=== PATIENT | female | born 1950 | race Caucasian/White ===

== ENCOUNTER → 2016-10-08 | Outpatient (CLI) | payer OTHER ==
[~2016-10-08] MED LIST: CALC3OIN TD; CYNI1000 INJ; [UNRECOGNIZED DRUG - CODE] TD
--- NOTE | 2016-10-08 12:19 | DIAGNOSTIC IMAGING REPORT ---
RIGHT KNEE 3 VIEWS CLINICAL HISTORY: Right knee pain. FINDINGS: AP, lateral, and sunrise views of the right knee are obtained. No prior studies are available for comparison at the time of dictation. The skeletal structures are well mineralized for age. No fracture is seen. There is mild tricompartmental degenerative joint space narrowing, greatest at the patellofemoral articulation. Large marginal osteophytes are seen laterally. There are patellar enthesophytes. No joint effusion is seen. The overlying soft tissues are within normal limits. IMPRESSION: Mild degenerative change as above. No acute bony abnormality is seen. Electronically signed by: Souleymane Maolne M.D. 10/08/2016 12:18 PM Dictated Date/Time: 10/08/2016 12:17 PM
== END | disposition home or self-care (01) ==
LOC: C.RAD1850 11:36
PROVIDERS: ATTEND Internal Medicine
DX: M25.561 Pain in right knee (principal)

== ENCOUNTER → 2016-10-15 | Outpatient (CLI) | payer OTHER ==
--- NOTE | 2016-10-15 15:19 | MAMMOGRAPHY REPORT ---
BILATERAL DIGITAL SCREENING MAMMOGRAM WITH CAD: 10/15/2016 CLINICAL HISTORY: Routine screening. Patient has no complaints. TECHNIQUE: Bilateral CC and MLO views were obtained. Current study was also evaluated with a Compute r Aided Detection (CAD) system. COMPARISON: Comparison is made to exams dated: 10/10/2015 mammogram, 10/26/2014 aspiration, 10/14/2014 u ltrasound, 10/14/2014 mammogram, 10/06/2014 mammogram, and 09/30/2013 mammogram - [facility] enter. BREAST COMPOSITION: The tissue of both breasts is extremely dense, which lowers the sensitivity of m ammography. FINDINGS: The parenchymal pattern is unchanged. No developing mass, architectural distortion or clus ter of suspicious microcalcifications is seen in either breast. IMPRESSION: ACR BI-RADS CATEGORY 2: BENIGN There is no mammographic evidence of malignancy. A 1 year screening mammogram is recommended. The pa tient will receive written notification of the results. Approximately 10% of breast cancers are not detected with mammography. A negative mammographic report should not delay biopsy if a clinically suggestive mass is present. Griselda Sorensen M.D. ay/:10/15/2016 13:55:10 Film Casting Operator: Danay GARZA(R)(M), [facility] letter sent: Normal 1/2 BI-RADS Code: ACR BI-RADS Category 2: Benign
== END | disposition home or self-care (01) ==
LOC: C.MAMM 09:38
PROVIDERS: ATTEND Obstetrics & Gynecology
DX: Z12.31 Encounter for screening mammogram for malignant neoplasm of breast (principal)

== ENCOUNTER → 2017-04-23 | Outpatient (CLI) | payer OTHER ==
--- NOTE | 2017-04-23 11:19 | DIAGNOSTIC IMAGING REPORT ---
THYROID ULTRASOUND HISTORY: E04.2 Multiple thyroid nodules Compare to previous studies.[id number] COMPARISON: Thyroid ultrasound 02/07/2015. FINDINGS: Right lobe: 4.4 x 1.6 x 1.5 cm. Multiple nodules are again noted. Dominant nodule within the upper pole measures 1.1 x 0.8 x 0.8 cm. These nodules are both solid and cystic are not significantly changed Left lobe: 4.8 x 1.7 x 1.6 cm. Multiple nodules are again noted. Dominant nodule within the lower pole measures 1.6 x 1.2 x 1.1 cm and is not significantly changed. This is both solid and cystic and was present biopsy. Isthmus: 4 mm in thickness. No significant change in the 1.7 x 1.3 x 1.1 cm nodule in the left side of the isthmus which is predominately solid. IMPRESSION: 1. No significant change in multinodular thyroid gland. The dominant nodule within the lower pole of the left thyroid lobe has been previously biopsied.. 2. The 1.7 x 1.3 x 1.1 cm nodule within the left side of the isthmus is predominantly solid and therefore meets sonographic criteria for biopsy. Ultrasound-guided fine needle aspiration of this nodule is recommended. Electronically signed by: Deejay Jeffery M.D. 04/23/2017 11:18 AM Dictated Date/Time: 04/23/2017 11:10 AM
== END | disposition home or self-care (01) ==
LOC: C.ULTR 10:10
PROVIDERS: ATTEND Internal Medicine Endocrinology, Diabetes & Metabolism
DX: E04.2 Nontoxic multinodular goiter (principal)

== ENCOUNTER → 2017-11-15 | Outpatient (CLI) | payer OTHER | END | disposition home or self-care (01) | LOC: C.LABSPEC 17:00 | PROVIDERS: ATTEND Podiatrist Foot & Ankle Surgery | DX: M70.872 Other soft tissue disorders related to use, overuse and pressure, left ankle and foot (principal) ==

== ENCOUNTER 2023-09-16 08:28 | Observation (INO) ==
--- NOTE | 2023-08-05 11:25 | PAT Medication Instructions ---
Medication Instructions Date of Service August 05, 2023 Home Medications Medication Instructions Recorded lidocaine 4 % topical patch 1 patch topical Q24H PRN pain #1 ea 01/12/19 (Aspercreme (lidocaine)) diclofenac sodium 1 % topical gel 2 g topical BID PRN Pain #100 grams 07/19/20 rosuvastatin 5 mg tablet 5 mg PO WK #12 tabs 06/11/23 sertraline 100 mg tablet 100 mg PO HS #90 tabs 06/30/23 triamcinolone acetonide 0.1 % topical ointment 1 appln topical BID PRN Skin Irritation lidocaine 4 % topical patch (Aspercreme (lidocaine)) 1 patch topical Q24H PRN pain diclofenac sodium 1 % topical gel 2 g topical BID PRN Pain cyanocobalamin (vitamin B-12) 1,000 mcg sublingual tablet 1,000 mcg sublingual 2XWK cholecalciferol (vitamin D3) 50 mcg (2,000 unit) capsule 1,000 unit PO QPM estradiol 0.01% (0.1 mg/gram) vaginal cream 1 appful vaginal MONTHLY cranberry 400 mg capsule 400 mg PO DAILY rosuvastatin 5 mg tablet 5 mg PO WK sertraline 100 mg tablet 100 mg PO HS azelastine 205.5 mcg (0.15 %) nasal spray 2 spray intranasal DAILY fluticasone propionate 50 mcg/actuation nasal spray,suspension 1 spray intranasal QPM esomeprazole magnesium 20 mg capsule,delayed release 20 mg PO QAM Continue as directed lidocaine 4 % topical patch (Aspercreme (lidocaine)) 1 patch topical Q24H PRN pain (avoid placement near surgical site prior to surgery) rosuvastatin 5 mg tablet 5 mg PO WK STOP taking 24 hours before surgery triamcinolone acetonide 0.1 % topical ointment 1 appln topical BID PRN Skin Irritation diclofenac sodium 1 % topical gel 2 g topical BID PRN Pain estradiol 0.01% (0.1 mg/gram) vaginal cream 1 appful vaginal MONTHLY DO NOT take the morning of surgery cyanocobalamin (vitamin B-12) 1,000 mcg sublingual tablet 1,000 mcg sublingual 2XWK Take morning of surgery With a small sip of water, OTHERWISE NOTHING TO EAT OR DRINK AFTER MIDNIGHT: azelastine 205.5 mcg (0.15 %) nasal spray 2 spray intranasal DAILY esomeprazole magnesium 20 mg capsule,delayed release 20 mg PO QAM Take evening before surgery cholecalciferol (vitamin D3) 50 mcg (2,000 unit) capsule 1,000 unit PO QPM sertraline 100 mg tablet 100 mg PO HS fluticasone propionate 50 mcg/actuation nasal spray,suspension 1 spray intranasal QPM Other Notes If you have any questions please call us at [phone] or [phone] or [phone] or [phone]
--- NOTE | 2023-08-19 11:18 | Anesthesiology Consultation ---
Date of Service August 19, 2023 Assessment & Plan (1) Encounter for pre-operative examination: Chart Review Chart Review: Acceptable Risk for Surgery (pending sinus CT scan (if available/scheduled before surgery)) and Patient seen in Pre Admission Testing - Awaiting sinus CT scan (if available/scheduled before surgery) (being ordered by dental secretary) - Patient is not ideal OPJ candidate (patient requests 23 hour obs) (currently scheduled as 23 hour obs) Per PAT appt on 08/19/23, no recent illness/disease exposures, illness related symptoms, or recent illness/disease positive tests. Will leave to surgeon's discretion if preop Covid testing needed Patient seen by allergy 08/19/2023 = patient with history of allergic as well as nonallergic rhinitis. Has environmental allergies but also has symptoms of gustatory rhinitis. Found to have partial benefit with fluticasone and azelastine. Patient to continue both. Ipratropium discontinued due to headaches. Patient also has history of sinusitis and feels as though left side is always worse than rightconcerned about possibility of untreated chronic sinusitis and recommend that we perform sinus CT scan to further evaluate. Patient excellent candidate for allergy shotshowever this would only treat allergic component of symptoms and she will likely have some degree of nonallergic rhinitis/possible not improved. Will contact patient once CT scan results are in. She will be getting joint replacement at the beginning of September. Teaching & Discussion Pre-Anesthesia Teaching/Discussion Notes: Instructed NPO after midnight before surgery,except medications with 15 cc of water. Medication instructions provided according to the PAT guidelines. History Surgery Operation Date: 09/16/23 11:00 Proposed Procedures p Right Total Knee Arthroplasty - Jairo Dawn DO Height/Weight Height: 5 ft 3 in Weight: 67.5 kg Allergies Allergy/AdvReac Type Severity Reaction Status Date / Time Sulfa (Sulfonamide Allergy Mild HIVES TYPE Verified 08/19/23 09:38 Antibiotics) REACTION "ANTS RUNNING OVER SKIN" acetaminophen [From Percocet] AdvReac Severe Nausea Verified 08/19/23 11:21 ibuprofen AdvReac Severe severe Verified 08/19/23 09:38 heartburn and abdominal pain oxycodone [From Percocet] AdvReac Severe Nausea Verified 08/19/23 11:21 prednisone AdvReac Severe Tachycardia Verified 08/19/23 09:38 carbamazepine AdvReac Mild WAS Verified 08/19/23 09:38 INEFFECTIVE meperidine AdvReac Mild N/V Verified 08/19/23 09:38 Medications Home Medications Medication Instructions Recorded Confirmed Last Taken triamcinolone acetonide 0.1 % 1 appln topical BID PRN Skin 01/10/19 08/19/23 Unknown topical ointment Irritation #1 g lidocaine 4 % topical patch 1 patch topical Q24H PRN pain #1 ea 01/12/19 08/19/23 Unknown (Aspercreme (lidocaine)) diclofenac sodium 1 % topical gel 2 g topical BID PRN Pain #100 grams 07/19/20 08/19/23 Unknown cyanocobalamin (vitamin B-12) 1,000 mcg sublingual 2XWK 07/25/20 08/19/23 Unknown 1,000 mcg sublingual tablet cholecalciferol (vitamin D3) 50 1,000 unit PO QPM 09/06/22 08/19/23 Unknown mcg (2,000 unit) capsule estradiol 0.01% (0.1 mg/gram) 1 appful vaginal MONTHLY 09/06/22 08/19/23 Unknown vaginal cream cranberry 400 mg capsule 400 mg PO DAILY 09/13/22 08/19/23 Unknown rosuvastatin 5 mg tablet 5 mg PO WK #12 tabs 06/11/23 08/19/23 Unknown sertraline 100 mg tablet 100 mg PO HS #90 tabs 06/30/23 08/19/23 Unknown azelastine 205.5 mcg (0.15 %) 2 spray intranasal DAILY 07/11/23 08/19/23 Unknown nasal spray fluticasone propionate 50 1 spray intranasal QPM 07/11/23 08/19/23 Unknown mcg/actuation nasal spray,suspension esomeprazole magnesium 20 mg 20 mg PO QAM 08/02/23 08/19/23 Unknown capsule,delayed release Past Medical History Medical History (Updated 08/19/23 @ 15:35 by Kenna Rojas PA-C) Allergic rhinitis Chronic - many years- stable Anxiety Dry eye syndrome GERD (gastroesophageal reflux disease) fairly controlled - stable with Nexium - follows with GI Hiatal hernia History of COVID-19 (~2021) mild, resolved History of seizures Simple partial seizures [id number] (was on medications)- has since off medications since 2011 without noted issues Only follows with PCP Hx of recurrent urinary tract infection No current issues Hyperlipidemia controlling with medication Lumbar spinal stenosis Non-allergic rhinitis Post-nasal drip severe, seeing an dental secretary Prediabetes no meds, diet controlled Psoriasis mild- stable Exercise / Class Metabolic Activity II 4-5 Yardwork/Stairs/Walk up hill (one flight of stairs - no chest pain or SOB ) Past Family History Family History Family/Other Family history of diabetes mellitus Grandfather Family history of diabetes mellitus Grandmother (Maternal) Myocardial infarction Grandfather (Maternal) Myocardial infarction Uncle Myocardial infarction Denies family history of Colon cancer Ovarian cancer Prostate cancer Breast cancer Past Surgical History Surgical History H/O toe surgery left foot big toe fusion History of adenoidectomy History of bilateral tubal ligation History of colonoscopy History of esophagogastroduodenoscopy (EGD) History of tonsillectomy History of total abdominal hysterectomy and bilateral salpingo-oophorectomy Hx of bilateral cataract extraction Nausea and vomiting after administration of anesthetic agent no recent issues S/P epidural steroid injection Past Anesthesia History No Hx of Anesthesia Complications (with exception to PONV with GA ) and No Family Hx of Anesthesia Complications History of PONV History of PONV (with GA ) and Hx of Motion Sickness Social History Smoking Status: Never smoker Do You Dip or Chew Tobacco: No Hx Alcohol Use: Yes Alcohol type: wine alcohol intake frequency: a few times a week Hx Substance Use: No substance use type: does not use Review of Systems - Chronic cough x years- secondary to allergies/post nasal drip- stable Patient denies chest pain, shortness of breath, dyspnea on exertion, wheezing, palpitations. No hx of stroke, MD, apnea/snoring. No hx of blood clots or blood transfusions Physical Exam Vital Signs VITALS BP 125/80 P 63 TEMP 97.5 SP02 97% RESP 16 Constitutional no acute distress ENMT Mouth: no TMJ clicking Thyromental Distance: > or= 3.5 Finger Breadths (3.5) Mallampati Class: III Mouth / Teeth: 2 1. Chipped 2. Chipped 3. Chippped 4. Chipped Crowns to side teeth See picture Neck neck extension not limited Respiratory normal respiratory effort; no respiratory distress Auscultation: lungs clear to auscultation bilaterally; no wheezes Cardiovascular Rate/Rhythm: regular rate and regular rhythm Heart Sounds: no murmur Vessels: no carotid bruit Musculoskeletal Spine: no pain with cervical ROM Extremities: extremities normal to inspection Psychiatric Orientation: alert Lab Results Anesthesia Preop Results Results Anesthesia Widget: 2 WBC 5.80 K/ul (4.8-10.8) 08/19/23 Hgb 13.0 g/dl (12.0-16.0) 08/19/23 Hct 39.3 % (37.0-47.0) 08/19/23 Plt 238 K/uL (130-400) 08/19/23 Na 140 mmol/L (136-145) 08/19/23 K 4.9 mmol/L (3.5-5.1) 08/19/23 Cl 106 mmol/L (98-107) 08/19/23 CO2 28 mmol/L (21-32) 08/19/23 BUN 14 mg/dl (6-23) 08/19/23 Creat 0.71 mg/dl (0.6-1.2) 08/19/23 Glucose Level 102 mg/dl (70-99(Fasting)) H 08/19/23 PT 10.9 Seconds (9.0-12.0) 08/19/23 PTT 29 Seconds (21-31) 08/19/23 INR 1.0 (0.9-1.1) 08/19/23 HA1c 5.9 % (4.5-5.6) H 08/19/23 Blood Type A Positive 08/19/23 Antibody Screen NEGATIVE 08/19/23 Testing Electrocardiogram Date: 08/19/23 Findings: + SB @ (56bpm) Otherwise normal EKG per cardio Chest X-Ray Date: 08/19/23 FINDINGS: There is a 6 mm nodular density within the left lung apex. This may represent a calcified granuloma given the density. This could also be associated with the left first rib. Otherwise, lungs are clear. No pneumothorax. No pleural effusions. The heart is normal in size. IMPRESSION: 1. No acute process within the chest. 2. A 6 mm nodular density within the left lung apex. This may be associated with the overlapping first rib or represent a calcified granuloma. (Workload note sent to PCP for continuity of care) Echocardiogram Date: 04/21/18 EF: 60 to 65% LV Function: normal RWMA: + none Other Findings: no LVH or no diastolic dysfunction Valvular Disease: + no significant valvular disease Normal estimated RVSP Other Testing Event monitor 05/17/18 = sinus rhythm. Symptomatic PACs
--- NOTE | 2023-09-11 07:22 | History & Physical Report ---
Date of Service September 11, 2023 Assessment & Plan (1) Right knee DJD: We will proceed with a right total knee arthroplasty. Postoperatively she will be started on aspirin for DVT prophylaxis and kept overnight in the hospital for postoperative medical management. She plans to use energy physical therapy upon discharge. History of Present Illness Chief Complaint: Osteoarthritis of the right knee. Primary Care Provider: Kassie Corral MD Brittany is a pleasant 72-year-old female who has been dealing with chronic increasing right knee pain. She has been seeing another provider. She has had x-rays, which showed advanced arthritis of the right knee. After failing extensive conservative treatment, she has elected proceed with a right total knee arthroplasty. Allergies Allergy/AdvReac Type Severity Reaction Status Date / Time Sulfa (Sulfonamide Allergy Mild HIVES TYPE Verified 09/02/23 07:47 Antibiotics) REACTION "ANTS RUNNING OVER SKIN" acetaminophen [From Percocet] AdvReac Severe Nausea Verified 09/02/23 07:47 ibuprofen AdvReac Severe severe Verified 09/02/23 07:47 heartburn and abdominal pain oxycodone [From Percocet] AdvReac Severe Nausea Verified 09/02/23 07:47 prednisone AdvReac Severe Tachycardia Verified 09/02/23 07:47 carbamazepine AdvReac Mild WAS Verified 09/02/23 07:47 INEFFECTIVE meperidine AdvReac Mild N/V Verified 09/02/23 07:47 Home Medications Medication Instructions Recorded Confirmed Type triamcinolone acetonide 0.1 % 1 appln topical BID PRN Skin 01/10/19 09/02/23 History topical ointment Irritation #1 g lidocaine 4 % topical patch 1 patch topical Q24H PRN pain #1 ea 01/12/19 09/02/23 Rx (Aspercreme (lidocaine)) diclofenac sodium 1 % topical gel 2 g topical BID PRN Pain #100 grams 07/19/20 09/02/23 Rx cyanocobalamin (vitamin B-12) 1,000 mcg sublingual 2XWK 07/25/20 09/02/23 History 1,000 mcg sublingual tablet cholecalciferol (vitamin D3) 50 1,000 unit PO QPM 09/06/22 09/02/23 History mcg (2,000 unit) capsule estradiol 0.01% (0.1 mg/gram) 1 appful vaginal MONTHLY 09/06/22 09/02/23 History vaginal cream cranberry 400 mg capsule 400 mg PO DAILY 09/13/22 09/02/23 History rosuvastatin 5 mg tablet 5 mg PO WK #12 tabs 06/11/23 09/02/23 Rx sertraline 100 mg tablet 100 mg PO HS #90 tabs 06/30/23 09/02/23 Rx azelastine 205.5 mcg (0.15 %) 2 spray intranasal DAILY 07/11/23 09/02/23 History nasal spray fluticasone propionate 50 1 spray intranasal QPM 07/11/23 09/02/23 History mcg/actuation nasal spray,suspension esomeprazole magnesium 20 mg 20 mg PO QAM 08/02/23 09/02/23 History capsule,delayed release Past Med/Surg History Problem List Nodule of upper lobe of left lung Diarrhea Following with GI Change in bowel habits Following with GI- colonoscopy to be done summer 2023 History of diverticulosis Lower abdominal pain Following with GI Imaging abnormalities Following with PCP Right knee DJD Prediabetes PND (post-nasal drip) Cough Chronic/ongoing- PCP aware Right knee pain Nocturia Interstitial cystitis Following with urology per PCP records Recurrent UTI Vitamin D deficiency (Chronic) Anxiety (Chronic) Arthralgia of multiple sites (Acute) Following with PCP Bunion of left foot (Chronic) follows with PCP- possibly seeing PSH Disc degeneration, lumbar (Chronic) GERD without esophagitis (Acute) Hyperlipidemia (Acute) Insomnia (Chronic) Controlled with sertraline Multiple thyroid nodules (Acute) Sensorineural hearing loss (SNHL) of both ears (Acute) Undifferentiated spondyloarthropathy (Acute) Vitamin B12 deficiency (Acute) Medical History Non-allergic rhinitis Bladder irritability Lumbar spinal stenosis Psoriasis mild- stable Anxiety History of COVID-19 (~2021) mild, resolved Hx of recurrent urinary tract infection No current issues Allergic rhinitis Chronic - many years- stable Post-nasal drip severe, seeing an chandelier maker Prediabetes no meds, diet controlled History of seizures Simple partial seizures [id number] (was on medications)- has since off medications since 2011 without noted issues Only follows with PCP Hiatal hernia GERD (gastroesophageal reflux disease) fairly controlled - stable with Nexium - follows with GI Dry eye syndrome Hyperlipidemia controlling with medication Surgical History Hx of bilateral cataract extraction S/P epidural steroid injection H/O toe surgery left foot big toe fusion Nausea and vomiting after administration of anesthetic agent no recent issues History of bilateral tubal ligation History of esophagogastroduodenoscopy (EGD) History of colonoscopy History of total abdominal hysterectomy and bilateral salpingo-oophorectomy History of tonsillectomy History of adenoidectomy Family History Family/Other Family history of diabetes mellitus Grandfather Family history of diabetes mellitus Grandmother (Maternal) Myocardial infarction Grandfather (Maternal) Myocardial infarction Uncle Myocardial infarction Denies family history of Colon cancer Ovarian cancer Prostate cancer Breast cancer Social History Smoking Status: Never smoker Second Hand Exposure: No; Do You Dip or Chew Tobacco: No; Hx Alcohol Use: Yes Alcohol type: wine Hx Substance Use: No Preferred Language: Upper Sorbian Communication Ability: Effective Visual Impairment: No Limitations Hearing Ability: Normal Group Tester Required: No Beliefs That Will Affect Care: None marital status: Current Living Situation: Spouse current occupational status: retired Feels Safe at Home: Yes Childhood Exposure to Second-Hand Smoke: Yes Dental Care, Regularly: Yes Physical Activity Frequency: Daily Seatbelt Use: always Sunscreen Use: Yes Assistive Devices: Glasses Review of Systems All systems reviewed & are unremarkable except as noted in HPI & below. Physical Exam On physical examination of the right knee, she has a slight varus deformity. Tenderness palpation of the distal medial femoral condyle and over the medial joint line.. Constitutional WD/WN, vitals as above Eyes PERRL, conjunctivae normal, anicteric sclerae ENMT external ear and nose normal, oropharynx normal Neck trachea midline, no thyromegaly Respiratory normal respiratory effort Cardiovascular RRR, no murmur, no edema Gastrointestinal (Abdomen) normal bowel sounds, soft, nontender, no hepatosplenomegaly Psychiatric A+Ox3, euthymic affect Results & Data Results & Data Laboratory Results . Diagnostic Findings X-rays of the right knee show advanced osteoarthritis with joint space narrowing and osteophyte formation.. PG Care Time/CCT Total # of Minutes Spent Total Time Spent with Patient: Total time spent is greater than 50% in coordination of care (as documented) at patient's floor/unit and/or counseling patient: Coding Level of Care Code None Diagnoses Right knee DJD M17.11
[~2023-09-16 08:28] MED LIST changes: +BUPIVACAINE 0.25% PF 30 ML VIAL ONE; +BUPIVACAINE 0.5 % 5 MG/1 ML PF 10ML VIAL ONE; -CALC3OIN TD; -CYNI1000 INJ; -[UNRECOGNIZED DRUG - CODE] TD
[2023-09-16] MEDS ORDERED: fentaNYL citrate PF 100 MCG/2 ML VIAL IV PRN (08:48)
[2023-09-16] MEDS ORDERED: ATROPINE SULFATE 0.1 MG/ML 10ML SYR IV PRN (08:48)
[2023-09-16] MEDS ORDERED: ePHEDrine sulfate 50 MG/ML AMP IV PRN (08:48)
[2023-09-16] MEDS ORDERED: ONDANSETRON INJ 2 MG/ML 2 ML VIAL IV PRN ×2 (08:48→13:19)
--- NOTE | 2023-09-16 08:59 | History & Physical Bridge Note ---
Date of Service September 16, 2023 History & Physical Bridge Note I have examined the patient, reviewed the History & Physical and in the interval since the performance of the History & Physical I have noted the following changes of clinical significance: no changes noted
[2023-09-16] MEDS: LR 500ML BOLUS, THEN 15ML/HR IV SCH (09:20)
[2023-09-16] MEDS ORDERED: MIDAZOLAM HCL 1 MG/ML 2ML VIAL ONE ×2 (09:25)
[2023-09-16] MEDS ORDERED: fentaNYL citrate PF 100 MCG/2 ML VIAL ONE (09:25)
[2023-09-16] MEDS: GABAPENTIN 300 MG CAP PO SCH (09:29)
[2023-09-16] MEDS: ACETAMINOPHEN 500 MG TAB PO SCH ×2 (09:29→17:15)
[2023-09-16] MEDS: FAMOTIDINE 20 MG TAB PO SCH (09:29)
[2023-09-16] MEDS: LR 60ML/HR IV SCH (09:31)
[2023-09-16] MEDS: dexAMETHasone**PF** 10 MG/ML VIAL IV SCH (09:35)
[2023-09-16] MEDS: TRANEXAMIC ACID 1,000 MG **IV Pre-op IV SCH (09:39)
[2023-09-16] MEDS ORDERED: Nursing to Pharmacy Communication SCH (10:00)
[2023-09-16] MEDS ORDERED: DexMEDEtomidine HCL IV 100 MCG/ML VIAL IV ONE (10:01)
[2023-09-16] MEDS ORDERED: ONDANSETRON INJ 2 MG/ML 2 ML VIAL ONE (10:08)
[2023-09-16] MEDS ORDERED: PROPOFOL IV EMULSION 10 MG/ML 20 ML VIAL IV ONE (10:08)
[2023-09-16] MEDS ORDERED: ePHEDrine sulfate 50 MG/ML AMP ONE (10:34)
[2023-09-16] MEDS: ROPIV 0.5% 246mg, Ketorolac 30mg, EPINEPHrine 0.5mg in NSS INFIL SCH (10:41)
--- NOTE | 2023-09-16 10:51 | Operative Report ---
PG Post Operative Report Pre & Post Diagnosis Operation Date: 09/16/23 10:00 Pre-Op Diagnosis: Right Knee Degenerative Joint Disease Post-Op Diagnosis: Right Knee Degenerative Joint Disease I identified the patient and participated in the time-out.: Yes Procedure Operation Date: 09/16/23 10:00 Actual Procedures p Right Total Knee Arthroplasty(Right) - Jairo Dawn DO Surgeon Jairo Dawn DO Campus Monitor Jairo Busby PA-C Estimated Blood Loss 30 Findings Consistent with Post-Op Diagnosis Specimens Right femoral and tibial bone Description of Procedure Implants used: I used a Jessenia Persona total knee arthroplasty system with a size 7 narrow femur, D tibia, 28 oval patella, and a size 12 medial congruent polyethylene bearing. All components were cemented in place with Biomet cement. Brittany arrived for the above procedure. She was seen in the preoperative holding area and the operative extremity was identified and signed. She was given a preoperative antibiotic, TXA, a spinal anesthetic and an adductor nerve block. She was taken back to the operating room and laid on the table in supine position. She was given basic sedation. The operative knee was then prepped and draped in sterile fashion. A timeout was done, and the patient and the operative extremity was properly identified. A midline incision was made directly over the patella. Dissection was taken down to the extensor mechanism. A subvastus arthrotomy was used. The medial retinaculum was released and the fat pad was mostly excised. The knee was flexed and the ACL, PCL, and meniscus were removed. A drill was sent down the center of the femoral canal followed by an intramedullary linda. Off that linda a distal femoral cutting block was placed. 9 mm was resected off the distal femur at 5 of valgus. A posterior referencing AP sizing guide was then placed on the distal femur. The femur measured to be a size 7. 2 drill holes were placed in 3 of external rotation. A 4-in-1 cutting block was then impacted into place. Anterior, posterior, and chamfer cuts were then made. The proximal tibia was then exposed. An external tibial alignment guide was placed. A tibial cut guide was then anchored in place and the proximal tibia was then resected. The posterior aspect of the knee was then opened up and any additional meniscus fragments and osteophytes were removed. The tibia measured to be a size D. The tibial plate was then placed in the appropriate rotation and the tibia was drilled and punched. Trial components were then placed. I used a size 12 medial polyethylene insert. The knee was brought through a full range of motion and felt to be stable. The peg holes for the femoral component were then drilled. The patella was then everted and 9 mm was resected off the posterior aspect of the patella. The patella measured to be a size 28 oval. 3 peg holes were then drilled. A trial patella was placed. The knee was once again brought through a full range of motion and felt to be stable. Trial components were then removed. The surrounding soft tissues were injected with 100 cc of an orthopedic pain control cocktail. All components were then cemented into place with Biomet cement. The final polyethylene insert was then snapped into place. Once cement was dry the tourniquet was deflated. Hemostasis was obtained. A dilute betadyne lavage was then done for 3 minutes. The joint was then irrigated with normal saline solution. The subvastus arthrotomy was then closed with #1 Vicryl suture. The skin was closed with 2-0 Vicryl, 3-0V lock suture, and giana. A soft compressive dressing was placed. She was then transferred to a hospital bed and taken to the postanesthesia care unit in stable condition. She tolerated the procedure well. Jairo Busby PA-C, was present for the entire procedure. He was critical for patient positioning, prepping, draping, retraction exposure, wound closure and application of sterile dressing. I attest to the content of the Intraoperative Record and any orders documented therein. Any exceptions are noted below.
--- NOTE | 2023-09-16 12:41 | XRay Report ---
XR knee RT 1 or 2V routine CLINICAL HISTORY: Surgical Post Op TECHNIQUE: 2 views of the right knee were obtained. Comparison: Comparison is made to knee radiographs 04/10/2023 and MRI knee 05/24/2023 FINDINGS: Patient is status post total knee arthroplasty with expected postsurgical changes including soft tiss ue swelling and subcutaneous emphysema. No periarticular lucency or hardware fracture is seen. IMPRESSION: Expected postoperative appearance status post placement of total knee arthroplasty. ACT 112: Negative or not required by law. Electronically signed by: Roland Matamoros M.D. 09/16/2023 12:39 PM
[2023-09-16] MEDS ORDERED: NALOXONE HCL 0.4 MG/1 ML VIAL/CARP IV PRN (13:19)
[2023-09-16] MEDS ORDERED: HYDROmorphone INJ 0.5 MG/0.5 ML SYR IV PRN (13:19)
[2023-09-16] MEDS ORDERED: TRIAMCINOLONE ACET 0.1% OINT 15 GM TUBE TOP PRN (13:19)
[2023-09-16] MEDS ORDERED: bisacodyL 10 MG SUPP PR PRN (13:19)
[2023-09-16] MEDS ORDERED: MAGNESIUM HYDROXIDE SUSP 30 ML UDC PO PRN (13:19)
[2023-09-16] MEDS ORDERED: METOCLOPRAMIDE HCL INJ 5 MG/ML 2 ML VIAL IV PRN (13:19)
[2023-09-16] MEDS ORDERED: DICLOFENAC SOD 1% GEL 100 GM TUBE EXT PRN (13:19)
[2023-09-16] MEDS: ORTHO JOINT ANESTHETIC ONE (13:26)
[2023-09-16] MEDS: ceFAZolin 2000MG 2,000 MG/15 ML SYR IV SCH ×2 (13:27→17:54)
[2023-09-16] MEDS: TRANEXAMIC ACID 1,000 MG **IV Intra-op IV SCH (13:27)
--- NOTE | 2023-09-16 13:57 | Anesthesiology Progress Note ---
Date of Service September 16, 2023 Anesthesia Post Procedure Vital Signs Vital Signs: Temp Pulse Pulse Resp BP Pulse Ox O2 Del Method 09/16/23 13:43 36.5 C 17 145/78 H 99 Room Air 09/16/23 12:55 36.4 C L 72 12 134/66 99 Room Air 09/16/23 12:45 68 16 119/66 98 Room Air 09/16/23 12:35 63 12 129/62 94 Room Air 09/16/23 12:25 65 12 132/65 97 Room Air 09/16/23 12:15 64 16 124/60 95 Room Air 09/16/23 12:06 71 14 127/66 96 Room Air 09/16/23 11:55 71 12 124/62 97 Room Air 09/16/23 11:45 70 14 122/58 L 98 Room Air 09/16/23 11:35 76 15 124/61 99 Oxymask 09/16/23 11:25 83 13 126/64 100 Oxymask 09/16/23 11:15 82 16 123/63 100 Oxymask 09/16/23 11:07 36.2 C L 87 12 113/56 L 100 Oxymask 09/16/23 09:09 36.8 C 74 18 130/84 98 Room Air O2 Flow Rate 09/16/23 13:43 09/16/23 12:55 09/16/23 12:45 09/16/23 12:35 09/16/23 12:25 09/16/23 12:15 09/16/23 12:06 09/16/23 11:55 09/16/23 11:45 09/16/23 11:35 4 09/16/23 11:25 4 09/16/23 11:15 4 09/16/23 11:07 4 09/16/23 09:09 Pain Intensity Abdomen: Pain Intensity: 4 Transfer of Care Handoff Completed per policy Notes Mental Status: alert / awake / arousable and participated in evaluation Patient Amnestic to Procedure: Yes Nausea / Vomiting: adequately controlled Pain: adequately controlled Airway Patency, RR, SpO2: stable & adequate BP & HR: stable & adequate Hydration State: stable & adequate Neuraxial Anesthesia: was administered and sensory block is resolving Anesthetic Complications: no major complications apparent and Pt Satisfied with anesthetic care
[2023-09-16] MEDS: SODIUM CHLORIDE 0.9% 1,000 ML IV SCH (14:12)
[2023-09-16] MEDS: KETOROLAC TROMETHAMINE 15 MG/ML VIAL IV SCH (15:34)
[2023-09-16] MEDS: traMADol HCL 50 MG TABLET PO PRN (19:47)
[2023-09-16] MEDS: SERTRALINE HCL 100 MG TABLET PO SCH (19:48)
[2023-09-16] MEDS: DOCUSATE SODIUM 100 MG CAP PO SCH (19:48)
[2023-09-16] MEDS: ASPIRIN 81 MG ECTAB PO SCH (19:48)
[2023-09-16] MEDS: SENNA 8.6 MG TAB PO SCH (19:49)
[2023-09-16] MEDS: FLUTICASONE PROPIONATE NA SPR 16 GM BTL SCH (20:21)
[2023-09-17] MEDS: MULTIVITAMIN TAB PO SCH (09:44)
[2023-09-17] MEDS: dexAMETHasone 4 MG TAB PO SCH (09:47)
[2023-09-17] MEDS: AZELASTINE HCL 0.1% NASAL 200 SPRAYS/27,400 MCG BTL SCH (10:07)
--- NOTE | 2023-09-17 11:10 | Orthopedic Progress Note ---
Date of Service September 17, 2023 Assessment & Plan (1) Right knee DJD: (2) Status post right knee replacement: Plan 72-year-old woman POD# 1 s/p right total knee replacement, doing well overall. Pain is relatively well-controlled. Medically stable. Postop x-rays well- appearing; hardware intact and well-positioned with good implantcementbone interface. She is neurologically intact. Plan: 1. DVT prophylaxis w/ TEDs, SCDs, ASA 81 mg BID. 2. PT/OT as tolerated. WBAT on the RLE. Encourage heel slides, SLR, full knee extension w/ quad sets. 3. Pain control doing well with current pain regimen. 4. Dressing change by nursing after PT/OT, prior to discharge. Do not get dressing/incision wet for 5 days. 5. Disposition - plan to D/C home w/ self-care & [facility] PT later today once cleared by PT/OT. 6. F/u 2-3 weeks post-op w/ orthopedics (Dr. Dawn's team), or as previously scheduled, for first post-op visit. Admission and Anticipated Discharge Date Admission Date: September 16, 2023 Subjective Patient is POD# 1 s/p right total knee arthroplasty by Dr. Dawn on 09/16/2023. Patient does admit to pain this morning, but says her pain is relatively well- controlled. Denies CP, SOB, N/V, RLE paresthesia. She has home PT and self- care arrangements made for upon discharge. Patient says that she will be ready to go home today. Physical Exam Physical Exam: GENERAL: AA&Ox3, NAD. Pleasant, affect is calm. Sitting in bed and appears comfortable. RESPIRATORY: Normal respiratory effort with no signs of distress. CHEST/AXILLA: Chest movement symmetrical. No deformities noted. SKIN: [place], warm and dry. MS/EXTREMITY: Knee dressing and GURU wrap c/d/i. EMMA hose donned to contralateral lower extremity. + ankle dorsi/plantarflexion. + SLR. + Knee flex/extend. NVI distally. Calf soft/NT. PT/DP intact. Results & Data Vital Signs (Past 12 Hours) Vital Signs Temp Pulse Resp BP Pulse Ox O2 Del Method 09/17/23 07:10 36.5 C 63 16 145/84 H 95 Room Air 09/17/23 04:01 36.7 C 61 17 134/76 96 Room Air Diagnostic Findings Knee X-Ray 09/16/23 11:15 XR knee RT 1 or 2V routine CLINICAL HISTORY: Surgical Post Op TECHNIQUE: 2 views of the right knee were obtained. Comparison: Comparison is made to knee radiographs 04/10/2023 and MRI knee 05/24/2023 FINDINGS: Patient is status post total knee arthroplasty with expected postsurgical changes including soft tissue swelling and subcutaneous emphysema. No periarticular lucency or hardware fracture is seen. IMPRESSION: Expected postoperative appearance status post placement of total knee arthroplasty. ACT 112: Negative or not required by law. Electronically signed by: Roland Matamoros M.D. 09/16/2023 12:39 PM
--- NOTE | 2023-09-17 11:17 | Discharge Summary ---
Date of Service September 17, 2023 Admission Exam (Per Admitting) Constitutional WD/WN, vitals as above no acute distress Eyes PERRL, conjunctivae normal, anicteric sclerae ENMT external ear and nose normal, oropharynx normal Mouth: + dentition abnormality and + chipped teeth; no TMJ abnormality and no TMJ clicking Mallampati Class: II Neck trachea midline, no thyromegaly normal visual inspection; neck extension not limited Respiratory normal respiratory effort; no respiratory distress Auscultation: lungs clear to auscultation bilaterally; no wheezes Cardiovascular RRR, no murmur, no edema Rate/Rhythm: regular rate and regular rhythm Heart Sounds: no murmur Vessels: no carotid bruit Gastrointestinal (Abdomen) normal bowel sounds, soft, nontender, no hepatosplenomegaly Musculoskeletal Spine: normal cervical ROM and no pain with cervical ROM Extremities: extremities normal to inspection Neurologic moves all extremities Psychiatric A+Ox3, euthymic affect Orientation: alert and oriented x 3 Discharge Data Procedures Performed Operation Date: 09/16/23 10:00 Actual Procedures p Right Total Knee Arthroplasty(Right) - Jairo Dawn DO Hospital Course (1) Right knee DJD: (2) Status post right knee replacement: Plan 72-year-old woman POD# 1 s/p right total knee replacement, doing well overall. Pain is relatively well-controlled. Medically stable. Postop x-rays well- appearing; hardware intact and well-positioned with good implantcementbone interface. She is neurologically intact. Plan: 1. DVT prophylaxis w/ TEDs, SCDs, ASA 81 mg BID. 2. PT/OT as tolerated. WBAT on the RLE. Encourage heel slides, SLR, full knee extension w/ quad sets. 3. Pain control doing well with current pain regimen. 4. Dressing change by nursing after PT/OT, prior to discharge. Do not get dressing/incision wet for 5 days. 5. Disposition - plan to D/C home w/ self-care & [facility] PT later today once cleared by PT/OT. 6. F/u 2-3 weeks post-op w/ orthopedics (Dr. Dawn's team), or as previously scheduled, for first post-op visit.
--- NOTE | 2023-09-17 17:46 | Discharge Summary ---
Date of Service September 17, 2023 Admission Exam Per Admitting Provider On physical examination of the right knee, she has a slight varus deformity. Tenderness palpation of the distal medial femoral condyle and over the medial joint line.. Constitutional WD/WN, vitals as above Eyes PERRL, conjunctivae normal, anicteric sclerae ENMT external ear and nose normal, oropharynx normal Neck trachea midline, no thyromegaly Respiratory normal respiratory effort Cardiovascular RRR, no murmur, no edema Gastrointestinal (Abdomen) normal bowel sounds, soft, nontender, no hepatosplenomegaly Psychiatric A+Ox3, euthymic affect Principal Diagnosis Same as "Discharge Diagnosis" noted below under Discharge Instructions. Discharge Exam GENERAL: AA&Ox3, NAD. Pleasant, affect is calm. Sitting in bed and appears comfortable. RESPIRATORY: Normal respiratory effort with no signs of distress. CHEST/AXILLA: Chest movement symmetrical. No deformities noted. SKIN: [place], warm and dry. MS/EXTREMITY: Knee dressing and GURU wrap c/d/i. EMMA hose donned to contralateral lower extremity. + ankle dorsi/plantarflexion. + SLR. + Knee flex/extend. NVI distally. Calf soft/NT. PT/DP intact. Discharge Data Allergies Allergy/AdvReac Type Severity Reaction Status Date / Time Sulfa (Sulfonamide Allergy Mild HIVES TYPE Verified 09/16/23 08:54 Antibiotics) REACTION "ANTS RUNNING OVER SKIN" ibuprofen AdvReac Severe severe Verified 09/16/23 08:54 heartburn and abdominal pain oxycodone [From Percocet] AdvReac Severe Nausea Verified 09/16/23 08:54 prednisone AdvReac Severe Tachycardia Verified 09/16/23 08:54 shellfish derived AdvReac Intermediate Nausea/ Verified 09/16/23 08:54 vomiting carbamazepine AdvReac Mild WAS Verified 09/16/23 08:54 INEFFECTIVE meperidine AdvReac Mild N/V Verified 09/16/23 08:54 Procedures Performed Operation Date: 09/16/23 10:00 Actual Procedures p Right Total Knee Arthroplasty(Right) - Jairo Dawn DO Ordered Studies 09/16/23 05:00 US - OR guided needle placemen Routine Hospital Course (1) Right knee DJD: (2) Status post right knee replacement: On September 16, 2023 Brittany arrived at [facility] operating room and underwent a right total knee replacement without complications. Patient had a spinal anesthetic for the procedure. Postoperatively, patient was transferred to the general orthopedic floor in stable condition and eventually started onto aspirin 81 mg twice daily for DVT prophylaxis as appropriate. Patient's hospital course was uneventful. On postoperative day #1, patient's vital signs were stable and pain was well-controlled. Patient was able to participate well with physical therapy, performing the necessary ambulation and range of motion exercises. Patient was then discharged home in stable condition, with [facility] services to begin. Patient will follow-up with orthopedics in 2 to 3 weeks for postoperative care. Plan 72-year-old woman POD# 1 s/p right total knee replacement, doing well overall. Pain is relatively well-controlled. Medically stable. Postop x-rays well- appearing; hardware intact and well-positioned with good implantcementbone interface. She is neurologically intact. Plan: 1. DVT prophylaxis w/ TEDs, SCDs, ASA 81 mg BID. 2. PT/OT as tolerated. WBAT on the RLE. Encourage heel slides, SLR, full knee extension w/ quad sets. 3. Pain control doing well with current pain regimen. 4. Dressing change by nursing after PT/OT, prior to discharge. Do not get dressing/incision wet for 5 days. 5. Disposition - plan to D/C home w/ self-care & [facility] PT later today once cleared by PT/OT. 6. F/u 2-3 weeks post-op w/ orthopedics (Dr. Dawn's team), or as previously scheduled, for first post-op visit. Total Time Total Time Spent Total Time Spent (In Minutes): Total Time Spent with Patient: Total time spent is greater than 50% in coordination of care (as documented) at patient's floor/unit and/or counseling patient: Discharge Plan Discharge Items Patient Disposition: Home - Self-Care Reason For Visit: Right Knee Degenerative Joint Disease Discharge Diagnosis: Right knee replacement Activity: Per Instructions section Non-emergency contact: Surgeon Call non-emergency contact if: your wound has increased redness and your wound has increased drainage Follow-up/Referrals: Kassie Corral MD [Primary Care Provider] - Diet: Regular Addtl Attending Provider Instructions: Activity and Therapy Recommendations: * If you are using [facility] then therapy will be provided at your home until they feel you have accomplished all of your goals. * If you are using [facility] then Physical Therapy will be provided until they feel you are ready to start Outpatient Physical Therapy. * If you are not using home therapy then Outpatient Physical Therapy should start about 3-5 days from your day of surgery. Therapy will last about 6-10 weeks * It is important not to put a pillow under your knee when you are relaxing or sleeping. It is just as important to make sure you are getting your knee perfectly straight as it is to regain your knee bend. * You were shown a series of exercises in the hospital. Do these exercises three times each day including the exercises you were shown in physical therapy. * Get up and walk several times each day. For the first four weeks, try not to stand or walk for more than one hour at a time. If you do stand or walk for more than one hour, you will not hurt anything, but your leg will likely swell. * As you feel comfortable, you may change from the walker or crutches to a cane and then to independent walking. Medications: * Narcotic You will likely be sent home from the hospital with a prescription for the narcotic pain medication that worked best throughout your stay. * Cefadroxil -take the antibiotic twice a day for 10 days to help prevent infection. * Aspirin Most patients will be required to take Aspirin 81mg twice a day for 6 weeks after surgery. This is obtained [id number] and a prescription is not necessary. * Other medications may be prescribed for specific circumstances. If you have any questions, please call the office at . * Resume previous home medications unless otherwise instructed TEDs/Elastic Stockings: The white elastic stockings help limit swelling and prevent blood clots from forming in your legs.~ The more you wear them, the more they work. Wear them for six weeks. Dressing Care: The dressing can be changed after physical therapy on postop day #1. Daily dry dressing changes for a few days, especially if the incision is still draining some. If the incision is not draining then you may leave the giana open to air. If there is a little bit of drainage or if the giana are getting stuck on your clothing then cover the incision with a dry dressing. The giana will be removed at your 2 week follow-up appointment. Showering: You may shower 5 days from the day of surgery as long as the incision is no longer draining. You may shower with the giana exposed. Let soapy water run over the giana and pat them dry. Do not scrub or soak the incision. Things To Watch For: * Drainage from the incision site that occurs more than one week after your surgery. * Increased redness at the incision site. * Fever above 102 degrees Fahrenheit. * Unusual chest pain or shortness of breath. * Call [facility] at with any of the above problems Follow-Up Visit: Follow-up with Dr. Dawn's PA (Jairo Busby) 2-3 weeks after your day of surgery. He will remove your giana and answer any questions. If you have any additional questions or concerns, Dr Dawn is usually in the office at the same time and will be available An appointment was probably scheduled when you signed-up for surgery in the office. If you have any questions call Office Instructions: More detailed instructions as well as Frequently Asked Questions were provided in a folder by our office when you signed-up for surgery. Please review these instructions when you get home. If you have any further questions or concerns, please feel free to call the office at [phone] Pending Studies at Discharge: No Stand-Alone Forms: My [facility], Pain - Opioid Pain Management Medications and DC Order Prescriptions: New cefadroxil 500 mg capsule 500 mg PO BID 10 Days Qty: 20 0RF aspirin [Adult Aspirin Regimen] 81 mg tablet,delayed release (DR/EC) 81 mg PO BID Qty: 84 0RF tramadol 50 mg tablet 50 mg PO Q6H PRN (Reason: pain) Qty: 30 0RF ondansetron 8 mg tablet,disintegrating 8 mg PO Q8H PRN (Reason: nausea and vomiting) Qty: 30 0RF Continued diclofenac sodium 1 % gel 2 g topical BID PRN (Reason: Pain) Qty: 100 0RF rosuvastatin 5 mg tablet 5 mg PO WK Qty: 12 1RF sertraline 100 mg tablet 100 mg PO HS Qty: 90 1RF cyanocobalamin (vitamin B-12) 1,000 mcg tablet, sublingual 1,000 mcg SL [id number] triamcinolone acetonide 0.1 % ointment 1 appln topical BID PRN (Reason: Skin Irritation) Qty: 1 Patient Comments: ears, elbow, knees Aspercreme (lidocaine) 4 % adhesive patch,medicated 1 patch TOP Q24H PRN (Reason: pain) Qty: 1 0RF Rx Instructions: may leave on for up to 12 hrs cranberry 400 mg capsule 400 mg PO DAILY Rx Instructions: administer with a meal cholecalciferol (vitamin D3) 50 mcg (2,000 unit) capsule 1,000 unit PO QPM estradiol 0.01 % (0.1 mg/gram) cream 1 appful vaginal MONTHLY Rx Instructions: Apply pea sized amount to vaginal area 2x a week fluticasone propionate 50 mcg/actuation spray,suspension 1 spray intranasal QPM Rx Instructions: administer into each nostril azelastine 205.5 mcg (0.15 %) spray,non-aerosol 2 spray intranasal DAILY Rx Instructions: administer into each nostril esomeprazole magnesium [Nexium] 20 mg capsule,delayed release(DR/EC) 20 mg PO BID aluminum-magnesium hydroxide 500-500 mg/5 mL Suspension 5 ml PO HS PRN (Reason: Indigestion) Discharge Orders: Discharge Order (Routine); Ordered 09/17/23 Ordered By: Aubrey Hawley/Other Patient Handouts: DVT Post Op Prevention Admission Data Admit Date/Time: 09/16/23 11:15 Attending Provider: Jairo Dawn Admit Provider: Jairo Dawn Primary Care Provider: Kassie Corral V. Other Interventions: Discharge Summary Assessment (RN) Last Done: 09/17/23 12:19
[2023-09-22] MEDS ORDERED: ROSUVASTATIN CALCIUM 5 MG TAB PO SCH (21:00)
== END 2023-09-17 13:15 | disposition home or self-care (01) ==
LOC: 3E 08:28 → ASU 08:28